=== PATIENT | female | born 1940 | race Caucasian/White ===

== ENCOUNTER → 2016-12-19 | Outpatient (CLI) | payer OTHER ==
[~2016-12-19] MED LIST: BACTRIM DS TABL1 TA1 PO; COUMADIN PO; DETROL LA; DETROL LA PO; FOLIC ACID PO; FOLIC ACID1 MG PO; GLUCOTROL PO; KCL PO; NORVASC PO; PRAVASTATIN SOD40 MG PO; RESTASIS32 EA OP; VICODIN 5/1 TAB 5/50 PO; ZOFRAN PO; [UNRECOGNIZED DRUG - REMARK] PO
--- NOTE | ~2016-12-19 | CT93 ---
[facility] A Service of [facility] & [facility] RADIOLOGY TEXT RESULTS PATIENT: SHARATH LOVETT LOCATION: [facility] ERR : 38 UNIT #: [id number] AGE: [address]: Rj Jaime MD SEX: F ORDER DR: [id number] [facility] [address] [place], [place] [address] [id number] O MR#: [id number] #: [id number] NAME: SHARATH LOVETT. : 1940 SEX: F STUDY DATE/TIME: 12/19/2016 8:37 UNIT: CIVR ROOM: STUDY DESCRIPTION: CT Lower Ext Rt W Cont Attending Physician: Rj Jaime M.D. Referring Physician: Rj Jaime M.D. Ordering Physician: Rj Jaime M.D. Primary Care Physician: Camden Gonzalez M.D. MEDICAL IMAGING REPORT This report is preliminary unless electronic signature is present EXAM CT arthrogram right knee. 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 TECHNIQUE CT arthrogram was performed of the right knee following the intraarticular injection of water soluble contrast. This CT exam was performed with one or more of the following radiation dose reduction techniques: automatic exposure control, adjustment of mA and/or kV according to patient size, and iterative reconstruction. FINDINGS The examination demonstrates early degenerative change of the knee with mild squaring of the tibial margins. Contrast distends the knee joint with evidence of synovitis and synovial thickening. No loose body identified. In the medial compartment, there is a small radial tear midbody segment medial meniscus estimated no more than a millimeter or 2 in width involving inner half of the meniscus. 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 In the lateral compartment, the meniscus appears intact. There is a 5 mm focus of high-grade chondromalacia central weightbearing lateral femoral condyle. In the patellofemoral compartment, high-grade chondromalacia noted along the medial patellar facet with subarticular osteophyte. A suspected area of grade 4 chondromalacia lateral femoral trochlea estimated about 1.5 cm in length. [facility]. [facility] A Service of [facility] & [facility] RADIOLOGY TEXT RESULTS PATIENT: SHARATH LOVETT LOCATION: [facility] : 36 UNIT #: [id number] AGE: [address]: Rj Jaime MD SEX: F ORDER DR: Cruciate and collateral ligaments appear intact. The extensor mechanism unremarkable. Extraarticular soft tissues appear normal. IMPRESSION 1. Small radial tear midbody segment medial meniscus. There is also mild degenerative fraying posterior horn medial meniscus. 2. Multifocal chondromalacia as detailed above. 8 mm focus of high-grade chondromalacia posterior medial femoral condyle, 5 mm focus of high-grade chondromalacia central weightbearing aspect lateral femoral condyle, as well as areas of high-grade chondromalacia medial patellar facet and lateral femoral trochlea. Dictated by... Ivan Stanton M.D. THIS IS AN ELECTRONICALLY VERIFIED REPORT Ivan Stanton M.D. at 12/19/2016 3:32 PM MARTIN/drea TD: 12/19/2016 12:09 JOB #: [id number] MEDICAL IMAGING REPORT Page 1 of 1 COPY
--- NOTE | ~2016-12-19 | XA43 ---
[facility] A Service of [facility] & [facility] RADIOLOGY TEXT RESULTS PATIENT: SHARATH BUTLER LOCATION: [facility] : 38 UNIT #: [id number] AGE: [address]: Rj Jaime MD SEX: F ORDER DR: [id number] [facility] [address] [place], [place] [address] [id number] O MR#: [id number] Acc #: [id number] NAME: SHARATH BUTLER. : 1940 SEX: F STUDY DATE/TIME: 12/19/2016 7:50 [facility]: STUDY DESCRIPTION: XA Arthrogram Knee Rt Attending Physician: Rj Jaime M.D. Referring Physician: Rj Jaime M.D. Ordering Physician: Rj Jaime M.D. Primary Care Physician: Camden Gonzalez M.D. MEDICAL IMAGING REPORT This report is preliminary unless electronic signature is present EXAM Right knee arthrogram HISTORY Right knee pain. Ms. Butler is a 76-year-old female who gives a history of acute onset of right knee pain, etiology unclear. On physical exam she has no evidence of joint effusion, she is referred knee arthrography. PROCEDURE The attendant risks and options were discussed with the patient. She relates a contrast allergy and 50 mg of Benadryl was administered IV prior to the procedure. The patient was placed in the supine position. A pad was placed under her right knee from a lateral approach and utilizing maximal sterile barrier technique a 25 gauge knee was inserted in the joint and approximately 5 mL of Lidocaine and approximately 15 mL of contrast was injected. The knee was subsequently flexed multiple times, spot radiographs were obtained documenting intraarticular placement and filling of suprapatellar bursa. The needle was removed, spot radiographs were obtained and a total of 3 images were recorded. Total fluoroscopy time was 3 minutes. Total contrast utilized approximately 15 mL. Total exposure estimated 11 mGy kerma standard. CONCLUSION Successful right knee injection under fluoroscopy. Patient is to undergo CTA, please see that dictation for further characterization. Dictated by... Martir Mendiola M.D. [facility]. [facility] A Service of [facility] & [facility] RADIOLOGY TEXT RESULTS PAT[facility]: [facility] BUT[facility]ER [id number] 36 UNIT #: [id number] AGE: [address]: Rj Jaime MD SEX: F ORDER DR: THIS IS AN ELECTRONICALLY VERIFIED REPORT Martir Mendiola M.D. at 12/19/2016 5:00 PM Kaleb TD: 12/19/2016 10:47 JOB #: [id number] MEDICAL IMAGING REPORT Page 1 of 1 COPY
== END | disposition home or self-care (01) ==
LOC: CIVR 07:29
DX: S83.241A Other tear of medial meniscus, current injury, right knee, initial encounter (principal); M23.321 Other meniscus derangements, posterior horn of medial meniscus, right knee; M94.261 Chondromalacia, right knee; Z95.2 Presence of prosthetic heart valve
CPT/HCPCS: 73580; 73701; 77002; J1200; Q9967